=== PATIENT | female | born 1945 | race American Indian/Alaskan Native ===

== ENCOUNTER 2021-11-28 02:39 | Emergency (ER) | payer MEDICARE ==
[2021-11-28 05:25] LABS: Basophils % (Auto) 0.3 % (0.0-1.8); Eosinophils # (Auto) 0.3 K/mm3 (0.0-0.4); Eosinophils % (Auto) 1.9 % (0.0-4.3); Hematocrit 37.1 % (30.3-42.9); Hemoglobin 11.7 gm/dl (10.1-14.3); Lymphocytes # (Auto) 3.8 K/mm3 (1.2-5.4); Lymphocytes % (Auto) 24.8 % (13.4-35.0); Mean Corpuscular HGB Conc 32 % (30-34); Mean Corpuscular Volume 99 fl (79-97); Monocytes # (Auto) 0.7 K/mm3 (0.0-0.8); Monocytes % (Auto) 4.7 % (0.0-7.3); Platelet Count 265 K/mm3 (140-440); Red Blood Count 3.76 M/mm3 (3.65-5.03); Red Cell Distribution Width 15.5 % (13.2-15.2)
[2021-11-28 05:44] LABS: Albumin 3.6 g/dL (3.9-5); Calcium 9.3 mg/dL (8.4-10.2)
[2021-11-28] MEDS ORDERED: FAMOTIDINE 20 MG/2 ML INJ IV ONE (06:34)
[2021-11-28] MEDS ORDERED: SODIUM CHLORIDE 0.9% 1000 ML 1,000 ML IV ONE ×3 (06:34→07:47)
[2021-11-28] MEDS ORDERED: ONDANSETRON 4 MG/2 ML INJ IV ONE (06:34)
--- NOTE | 2021-11-28 06:48 | Emergency Department Report ---
ED General Adult HPI - General Chief complaint: Pain General Stated complaint: GENERAL ILLNESS Time Seen by Provider: 11/28/21 06:33 Source: patient Mode of arrival: Stretcher Limitations: No Limitations - History of Present Illness Initial comments: 76-year-old female with history of diabetes hypertension hyperlipidemia brought in by EMS for complaints of weakness and diarrhea. Patient reports she saw her primary care doctor after yesterday and went to receive a prescription for her cholesterol medication. She states she was feeling fine. She states however last night she began feeling unwell and then this morning at 12 AM she awoke with body aches chills and had to have multiple watery nonbloody stools. She denies any abdominal pain. No chest pain or shortness of breath no difficulty breathing or palpitations. She reports having chronic mid back pain "for years" but states it has not worsened and it is not changed in quality or nature. No cough or URI symptoms. She is not on antibiotics. She denies any recent antibiotic usage. Pain currently 3 out of 10. -: Sudden Time: 12:00 Location: abdomen Radiation: non-radiation Severity scale (0 -10): 3 Quality: dull, constant Consistency: constant Improves with: none Worsens with: none Associated Symptoms: diaphoresis, fever/chills, nausea/vomiting Treatments Prior to Arrival: none - Related Data Allergies Allergy/AdvReac Type Severity Reaction Status Date / Time No Known Allergies Allergy Unverified 11/28/21 04:12 ED Review of Systems ROS: Stated complaint: GENERAL ILLNESS Other details as noted in HPI Constitutional: no symptoms reported, chills, diaphoresis, fever, malaise, weakness Eyes: denies: eye pain, eye discharge, vision change ENT: denies: as per HPI, ear pain, throat pain, dental pain, hearing loss Respiratory: no symptoms reported, cough Cardiovascular: denies: chest pain, palpitations, dyspnea on exertion, edema, syncope, paroxysmal nocturnal dyspnea Endocrine: denies: see HPI, excessive sweating, flushing, intolerance to cold, intolerance to heat, increased hunger, increased thirst, increased urine, unexplained weight gain, unexplained weight loss Gastrointestinal: abdominal pain, nausea, diarrhea, constipation. denies: vomiting, hematemesis, melena, hematochezia Genitourinary: denies: urgency, dysuria, frequency, hematuria, discharge, abnormal menses, dyspareunia, other Musculoskeletal: denies: back pain, joint swelling, arthralgia Skin: denies: rash, lesions, change in color, change in hair/nails, pruritus Neurological: denies: headache, weakness, numbness, paresthesias, confusion, abnormal gait, vertigo, other Psychiatric: denies: anxiety, depression, auditory hallucinations, visual hallucinations, homicidal thoughts, suicidal thoughts Hematological/Lymphatic: denies: easy bleeding, easy bruising, swollen glands ED Past Medical Hx - Past Medical History Previous Medical History?: Yes Hx Diabetes: Yes Hx Arthritis: Yes Additional medical history: Neuropathy. SVT - Surgical History Past Surgical History?: Yes Additional Surgical History: Bilateral Cataract - Social History Smoking Status: Current Every Day Smoker Substance Use Type: None ED Physical Exam - General Limitations: No Limitations General appearance: alert, in no apparent distress - Head Head exam: Present: atraumatic, normocephalic, normal inspection - Eye Eye exam: Present: normal appearance, PERRL, EOMI Pupils: Present: normal accommodation - ENT ENT exam: Present: normal exam, mucous membranes moist, normal external ear exam - Neck Neck exam: Present: normal inspection, full ROM. Absent: tenderness, meningismus, lymphadenopathy, thyromegaly - Respiratory Respiratory exam: Present: normal lung sounds bilaterally. Absent: respiratory distress, wheezes, rales, rhonchi, stridor, chest wall tenderness, accessory muscle use, decreased breath sounds, prolonged expiratory, other - Cardiovascular Cardiovascular Exam: Present: regular rate, normal rhythm, normal heart sounds. Absent: bradycardia, tachycardia, irregular rhythm, systolic murmur, diastolic murmur, rubs, gallop, clicks, JVD, S3, S4, other - GI/Abdominal GI/Abdominal exam: Present: soft, normal bowel sounds, diminished bowel sounds. Absent: distended, tenderness, guarding, rebound, rigid, hyperactive bowel sounds, hypoactive bowel sounds, organomegaly, mass, bruit, pulsatile mass, hernia - Extremities Exam Extremities exam: Present: normal inspection, full ROM, normal capillary refill. Absent: tenderness, pedal edema, calf tenderness - Back Exam Back exam: Present: normal inspection, full ROM. Absent: tenderness, CVA tenderness (R), CVA tenderness (L), muscle spasm, paraspinal tenderness, vertebral tenderness - Neurological Exam Neurological exam: Present: alert, oriented X3, CN II-XII intact, other (Unable to test gait secondary to patient's current clinical condition) - Psychiatric Psychiatric exam: Present: normal affect, normal mood. Absent: depressed, agitated, anxious, flat affect, manic, homicidal ideation, suicidal ideation - Skin Skin exam: Present: warm, dry, intact, normal color ED Course Vital Signs 11/28/21 11/28/21 11/28/21 02:39 06:36 06:45 Temperature 98 F Pulse Rate 55 L 52 L 55 L Respiratory 18 16 11 L Rate Blood Pressure 150/90 73/41 Blood Pressure [Left] O2 Sat by Pulse 98 100 100 Oximetry 11/28/21 11/28/21 11/28/21 07:01 07:15 07:31 Temperature Pulse Rate 63 64 58 L Respiratory 25 H 18 22 Rate Blood Pressure 73/41 73/41 96/50 Blood Pressure [Left] O2 Sat by Pulse 100 100 Oximetry 11/28/21 11/28/21 11/28/21 08:31 08:45 09:02 Temperature Pulse Rate 65 65 65 Respiratory 21 11 L Rate Blood Pressure 73/41 85/48 Blood Pressure 105/77 [Left] O2 Sat by Pulse Oximetry 11/28/21 09:04 Temperature Pulse Rate Respiratory Rate Blood Pressure Blood Pressure [Left] O2 Sat by Pulse 96 Oximetry - Reevaluation(s) Reevaluation #1: 11/28/21 06:49 pt is comfortable appearing; informed that labs, cxr, and ct scan have been ordered. Pt also ordered for NS, zofran, and famotidine. Reevaluation #2: 11/28/21 09:26 pt appears well; is requesting food; vitals have improved; she reports she has "cramps' in her abdomen, denies active diarrhea; Reevaluation #3: 11/28/21 09:19 Case reviewed via telephone with on-call home restoration service supervisor, Dr. Das. She advises that the patient be started on a Protonix drip, and during her admission have viral hepatitis panel added. She is also requesting that the patient have acetaminophen level and INR added as well. She states that the patient will be evaluated by GI during the patient's inpatient hospitalization ED Medical Decision Making - Lab Data Result diagrams: 11/28/21 04:28 11/28/21 04:28 - EKG Data -: EKG Interpreted by Me EKG shows normal: sinus rhythm Rate: normal - EKG Data When compared to previous EKG there are: no significant change - Radiology Data Radiology results: report reviewed - Medical Decision Making 76-year-old female with multiple medical comorbidities presents for evaluation and is found today to have hypotension, elevated anion gap metabolic acidosis, hyperglycemia, transaminitis, and leukocytosis. Patient given famotidine, Protonix, and multiple liters of normal saline here with good effect. CT scan findings reviewed and discussed with consult below Case reviewed with on-call home restoration service supervisor,, Dr. Das. Finally Case reviewed with admitting hospitalist, @ 09:27am. Patient has been accepted for admission to the hospital service for further management. Critical Care Time: Yes (30) Critical care attestation.: If time is entered above; I have spent that time in minutes in the direct care of this critically ill patient, excluding procedure time. ED Disposition Clinical Impression: Hypotension, Diarrhea, High anion gap metabolic acidosis, Transaminitis Disposition: ADMITTED INPATIENT Is pt being admited?: Yes Does the pt Need Aspirin: No Condition: Stable
--- NOTE | 2021-11-28 07:00 | XRay Report ---
CHEST 1 VIEW 11/28/2021 5:54 AM INDICATION / CLINICAL INFORMATION: weakness, hypotension. COMPARISON: None available. FINDINGS: SUPPORT DEVICES: None. HEART / MEDIASTINUM: No significant abnormality. LUNGS / PLEURA: No significant pulmonary or pleural abnormality. No pneumothorax. ADDITIONAL FINDINGS: No significant additional findings. IMPRESSION: No acute abnormality. Signer Name: Lucien Jones MD Signed: 11/28/2021 6:55 AM Workstation Name: [id number]
[2021-11-28] MEDS ORDERED: INSULIN REGULAR, HUMAN 100 UNITS/1 ML IV ONE (07:30)
--- NOTE | 2021-11-28 08:27 | Cat Scan Report ---
CT ABDOMEN AND PELVIS WITH CONTRAST INDICATION / CLINICAL INFORMATION: abdominal pain, hypotension, frequent bowel movements. TECHNIQUE: Axial CT images were obtained through the abdomen and pelvis after 75 cc Omnipaque [address] scans at this location are performed using CT dose reduction for ALARA by means of automated e xposure control. COMPARISON: None available. FINDINGS: LOWER CHEST: No significant abnormality. LIVER: There is generalized steatosis. No other significant abnormality. GALLBLADDER: Marked gallbladder wall thickening is noted without clear visualization of calcified sto raheel. BILE DUCTS: No significant abnormality. PANCREAS: No significant abnormality. SPLEEN: No significant abnormality. ADRENALS: No significant abnormality. RIGHT KIDNEY/URETER: No significant abnormality. LEFT KIDNEY/URETER: A simple subcentimeter cyst is seen posteriorly along the upper pole. No other si gnificant abnormality. STOMACH/SMALL BOWEL: A nonspecific ovoid hyperdensity is seen posteriorly/superiorly along the gastri c fundus on image 28 of series 2 measuring up to 9 mm. There is generalized mild thickening of the st omach without other significant gastric or small bowel abnormalities. COLON: No significant abnormality. APPENDIX: No significant abnormality. PERITONEUM: Trace free fluid is seen along the pelvis. No free air. No fluid collection. LYMPH NODES: No significant adenopathy. VASCULATURE: No acute findings. There is mild generalized atherosclerosis. URINARY BLADDER: No significant abnormality. REPRODUCTIVE ORGANS: No significant abnormality. ADDITIONAL FINDINGS: None. BONES: No acute findings. There is mild spondylosis with demineralization of the bones, especially no table along the sacrum and posterior wings of the iliac bones. A nonspecific sclerotic lesion is seen to the right of midline along the mid sacrum abutting the sacroiliac joint on image 133 of series 2 and measuring 1.2 cm. IMPRESSION: 1. Possible gastritis with an indeterminate subcentimeter hyperdensity along the gastric fundus as ab ove that could represent an ulceration or small area of bleeding. Please correlate with the clinical findings. 2. No other acute findings to explain the patient's complaints. 3. Additional findings as above. Signer Name: Sreekanth Velazco MD Signed: 11/28/2021 8:23 AM Workstation Name: [id number]
[2021-11-28] MEDS ORDERED: PANTOPRAZOLE 40 MG INJ IV ONE (09:03)
[2021-11-28] MEDS ORDERED: PANTOPRAZOLE 80 MG in SODIUM CHLORIDE 0.9% 100 ML IV SCH (10:00)
--- NOTE | 2021-11-28 11:20 | History and Physical Report ---
History of Present Illness Date of examination: 11/28/21 Date of admission: 11/28/2021 Chief complaint: Abdominal pain, hypotension History of present illness: 76-year-old female with history of diabetes hypertension hyperlipidemia brought in by EMS for complaints of weakness and diarrhea. Patient reports she saw her primary care doctor after yesterday and went to receive a prescription for her cholesterol medication. She states she was feeling fine. She states however last night she began feeling unwell and then this morning at 12 AM she awoke with body aches chills and had to have multiple watery nonbloody stools. She denies any abdominal pain. No chest pain or shortness of breath no difficulty breathing or palpitations. She reports having chronic mid back pain "for years" but states it has not worsened and it is not changed in quality or nature. No cough or URI symptoms. She is not on antibiotics. She denies any recent antibiotic usage. The patient reported that she did have approximately 1 week long bout of constipation that resolved with that recent diarrhea. Past History Past Medical History: diabetes, hypertension, hyperlipidemia Past Surgical History: No surgical history Social history: no significant social history Family history: no significant family history Medications and Allergies Allergies Allergy/AdvReac Type Severity Reaction Status Date / Time No Known Allergies Allergy Unverified 11/28/21 04:12 Active Meds: Active Medications Pantoprazole Sodium 80 mg/ (Sodium Chloride) 100 mls @ 10 mls/hr IV DIRECT PHILIP Last Admin: 11/28/21 11:00 Dose: 8 mg/hr, 10 mls/hr Review of Systems All systems: negative Exam - Constitutional Vitals: Temp Pulse Resp BP Pulse Ox 98 F 62 17 77/47 83 L 11/28/21 02:39 11/28/21 11:01 11/28/21 11:01 11/28/21 11:01 11/28/21 11:01 General appearance: Present: no acute distress, well-nourished - EENT Eyes: Present: PERRL ENT: hearing intact, clear oral mucosa - Neck Neck: Present: supple, normal ROM - Respiratory Respiratory effort: normal Respiratory: bilateral: CTA - Cardiovascular Heart Sounds: Present: S1 & S2. Absent: rub, click - Extremities Extremities: pulses symmetrical, No edema Peripheral Pulses: within normal limits - Abdominal General gastrointestinal: Present: soft, non-tender, non-distended, normal bowel sounds Female genitourinary: Present: normal - Integumentary Integumentary: Present: clear, warm, dry - Musculoskeletal Musculoskeletal: gait normal, strength equal bilaterally - Psychiatric Psychiatric: appropriate mood/affect, intact judgment & insight - Neurologic Neurologic: CNII-XII intact, moves all extremities Results - Labs CBC & Chem 7: 11/28/21 04:28 11/28/21 04:28 Labs: Laboratory Last Values WBC 15.3 K/mm3 (4.5-11.0) H 11/28/21 04:28 RBC 3.76 M/mm3 (3.65-5.03) 11/28/21 04:28 Hgb 11.7 gm/dl (10.1-14.3) 11/28/21 04:28 Hct 37.1 % (30.3-42.9) 11/28/21 04:28 MCV 99 fl (79-97) H 11/28/21 04:28 MCH 31 pg (28-32) 11/28/21 04:28 MCHC 32 % (30-34) 11/28/21 04:28 RDW 15.5 % (13.2-15.2) H 11/28/21 04:28 Plt Count 265 K/mm3 (140-440) 11/28/21 04:28 Lymph % (Auto) 24.8 % (13.4-35.0) 11/28/21 04:28 [place] % (Auto) 4.7 % (0.0-7.3) 11/28/21 04:28 Eos % (Auto) 1.9 % (0.0-4.3) 11/28/21 04:28 Baso % (Auto) 0.3 % (0.0-1.8) 11/28/21 04:28 Lymph # (Auto) 3.8 K/mm3 (1.2-5.4) 11/28/21 04:28 [place] # (Auto) 0.7 K/mm3 (0.0-0.8) 11/28/21 04:28 Eos # (Auto) 0.3 K/mm3 (0.0-0.4) 11/28/21 04:28 Baso # (Auto) 0.0 K/mm3 (0.0-0.1) 11/28/21 04:28 Seg Neutrophils % 68.3 % (40.0-70.0) 11/28/21 04:28 Seg Neutrophils # 10.4 K/mm3 (1.8-7.7) H 11/28/21 04:28 Sodium 137 mmol/L (137-145) 11/28/21 04:28 Potassium 4.3 mmol/L (3.6-5.0) 11/28/21 04:28 Chloride 101.3 mmol/L (98-107) 11/28/21 04:28 Carbon Dioxide 12 mmol/L (22-30) L 11/28/21 04:28 Anion Gap 28 mmol/L 11/28/21 04:28 BUN 27 mg/dL (7-17) H 11/28/21 04:28 Creatinine 1.3 mg/dL (0.6-1.2) H 11/28/21 04:28 Estimated GFR 40 ml/min 11/28/21 04:28 BUN/Creatinine Ratio 21 % 11/28/21 04:28 Glucose 564 mg/dL (65-100) H* 11/28/21 04:28 Lactic Acid 13.20 mmol/L (0.7-2.0) H* 11/28/21 09:16 Calcium 9.3 mg/dL (8.4-10.2) 11/28/21 04:28 Total Bilirubin 0.70 mg/dL (0.1-1.2) 11/28/21 04:28 AST 399 units/L (5-40) H 11/28/21 04:28 ALT 200 units/L (7-56) H 11/28/21 04:28 Alkaline Phosphatase 198 units/L (35-129) H 11/28/21 04:28 Total Protein 6.9 g/dL (6.3-8.2) 11/28/21 04:28 Albumin 3.6 g/dL (3.9-5) L 11/28/21 04:28 Albumin/Globulin Ratio 1.1 % 11/28/21 04:28 Lipase 53 units/L (13-60) 11/28/21 08:00 Assessment and Plan Assessment and plan: 76-year-old female with history of diabetes hypertension hyperlipidemia brought in by EMS for complaints of weakness and diarrhea. Patient reports she saw her primary care doctor after yesterday and went to receive a prescription for her cholesterol medication. She states she was feeling fine. She states however last night she began feeling unwell and then this morning at 12 AM she awoke with body aches chills and had to have multiple watery nonbloody stools. She denies any abdominal pain. No chest pain or shortness of breath no difficulty breathing or palpitations. She reports having chronic mid back pain "for years" but states it has not worsened and it is not changed in quality or nature. No cough or URI symptoms. She is not on antibiotics. She denies any recent antibiotic usage. The patient reported that she did have approximately 1 week long bout of constipation that resolved with that recent diarrhea. The patient was admitted with diagnosis below. DKA/Diabetes mellitus type 2. Patient with significant hyperglycemia, anion gap. IV insulin drip, agressive IVF hydration Acute gastroenteritis/gastritis Severe sepsis/septic shock. Patient meets criteria given the leukocytosis, tachypnea and diagnosis of gastroenteritis along with lactic acidosis and hypotension. Acute kidney injury. Etiology secondary to vasomotor nephropathy severe lactic acidosis/metabolic acidosis. Hypertension Hyperlipidemia. 11/28/2021. CT scan reveals gastritis with an indeterminate subcentimeter hypodensity along the gastric fundus which could represent ulceration. Patient will be treated with antibiotics of Levaquin and Flagyl and consider GI consultation. Follow-up blood cultures and stool studies. Continue aggressive IV fluid hydration. Initiate insulin drip. Pt may need bicarbonate drip. We will hold BP medications for now given the hypotension. Monitor BP closely. If the patient's BP does not improve, we will initiate pressors
[2021-11-28] MEDS ORDERED: ONDANSETRON 4 MG/2 ML INJ IV PRN (11:24)
[2021-11-28] MEDS ORDERED: DEXTROSE 50% IN WATER (25GM) 50 ML SYRINGE IV PRN (11:24)
[2021-11-28] MEDS ORDERED: MORPHINE 4 MG/1 ML INJ IV PRN (11:24)
[2021-11-28] MEDS ORDERED: HYDROcodone/ACETAMINOPHEN 5-325 MG TAB PO PRN (11:24)
[2021-11-28] MEDS ORDERED: ACETAMINOPHEN 325 MG TAB PO PRN (11:24)
--- NOTE | 2021-11-28 11:25 | Gastroenterology Consultation ---
History of Present Illness - Reason for Consult Consult date: 11/28/21 elevated LFTs Requesting physician: RIVER GARCIAS - History of Present Illness This is a 76 yo female with pmh of DM, HTN, Hyperlipidemia brought into the ER for weakness, hypotension, abdominal pain. GI consulted for elevated liver enzymes. Patient is able to give limited history and presents with her son by bedside who gives history as well reports having on and off symptoms of what is described as abdominal gripe with excessive gas leading to nausea and vomiting for the past 1 year. She denies any abdominal pain. She has had a mix of diarrhea and constipation for the past week she has had constipation but for the past day or so she has had loose stools. Denies any blood in the stool or melena. Denies any vomiting blood. She was recently seen at [facility] ER on November 26 for tachycardia with SVT. She was given adenosine and Cardizem.. In the ED she was noted to be hypotensive with systolic in 60s. But responded to IV fluids. Patient noted to have elevated liver enzymes AST at 399 ALT 200 alk phos 198. Normal T bili. Normal lipase at 53. Noted to have leukocytosis with WBC of 15. She has had CT abdomen pelvis which showed nonspecific ovoid hyperdensity in the gastric fundus with generalized mild thickening of the stomach question of ulceration or small area of bleeding. Also noted to have marked gallbladder wall thickening without calcified stones. CT a/p showed STOMACH/SMALL BOWEL: A nonspecific ovoid hyperdensity is seen posteriorly/sup eriorly along the gastric fundus on image 28 of series 2 measuring up to 9 mm. There is generalized mild thickening of the stomach without other significant gastric or small bowel abnormalities. Thickened gallbladder wall. medication list reviewed. Past History Past Medical History: diabetes, hypertension, hyperlipidemia Past Surgical History: No surgical history Social history: no significant social history Family history: no significant family history Medications and Allergies Allergies Allergy/AdvReac Type Severity Reaction Status Date / Time No Known Allergies Allergy Unverified 11/28/21 04:12 Active Meds: Active Medications Pantoprazole Sodium 80 mg/ (Sodium Chloride) 100 mls @ 10 mls/hr IV DIRECT PHILIP Last Admin: 11/28/21 11:00 Dose: 8 mg/hr, 10 mls/hr Review of Systems - Review of Systems All systems: negative Constitutional: no weight loss, no weight gain, no fever, no chills Cardiovascular: no chest pain Gastrointestinal: nausea, vomiting, diarrhea, constipation, no abdominal pain, no melena, no hematochezia Neurological: weakness Psychiatric: no anxiety Endocrine: no cold intolerance Hematologic/Lymphatic: no easy bruising Allergic/Immunologic: no wheezing Exam - Constitutional Vital Signs: Temp Pulse Resp BP Pulse Ox 98 F 62 17 77/47 83 L 11/28/21 02:39 11/28/21 11:01 11/28/21 11:01 11/28/21 11:01 11/28/21 11:01 General appearance: no acute distress - EENT Eyes: EOM intact ENT: hearing intact - Neck Neck: supple - Respiratory Respiratory effort: normal - Cardiovascular Rhythm: regular Heart Sounds: Present: S1 & S2 - Gastrointestinal General gastrointestinal: Present: soft, non-tender, non-distended - Integumentary Integumentary: Present: clear - Neurologic Neurological: alert and oriented x3 - Psychiatric Psychiatric: appropriate mood/affect - Labs CBC & Chem 7: 11/28/21 04:28 11/28/21 04:28 Lab Results: Laboratory Results - last 24 hr 11/28/21 11/28/21 11/28/21 04:28 04:28 08:00 WBC 15.3 H RBC 3.76 Hgb 11.7 Hct 37.1 MCV 99 H MCH 31 MCHC 32 RDW 15.5 H Plt Count 265 Lymph % (Auto) 24.8 [place] % (Auto) 4.7 Eos % (Auto) 1.9 Baso % (Auto) 0.3 Lymph # (Auto) 3.8 [place] # (Auto) 0.7 Eos # (Auto) 0.3 Baso # (Auto) 0.0 Seg Neutrophils % 68.3 Seg Neutrophils # 10.4 H Sodium 137 Potassium 4.3 Chloride 101.3 Carbon Dioxide 12 L Anion Gap 28 BUN 27 H Creatinine 1.3 H Estimated GFR 40 BUN/Creatinine Ratio 21 Glucose 564 H* Lactic Acid Calcium 9.3 Total Bilirubin 0.70 AST 399 H ALT 200 H Alkaline Phosphatase 198 H Total Protein 6.9 Albumin 3.6 L Albumin/Globulin Ratio 1.1 Lipase 53 11/28/21 09:16 WBC RBC Hgb Hct MCV MCH MCHC RDW Plt Count Lymph % (Auto) [place] % (Auto) Eos % (Auto) Baso % (Auto) Lymph # (Auto) [place] # (Auto) Eos # (Auto) Baso # (Auto) Seg Neutrophils % Seg Neutrophils # Sodium Potassium Chloride Carbon Dioxide Anion Gap BUN Creatinine Estimated GFR BUN/Creatinine Ratio Glucose Lactic Acid 13.20 H* Calcium Total Bilirubin AST ALT Alkaline Phosphatase Total Protein Albumin Albumin/Globulin Ratio Lipase - Imaging CT Scan: report reviewed Assessment and Plan # Elevated LFTs - elevated liver enzymes AST at 399 ALT 200 alk phos 198. Normal T bili. Normal lipase at 53. Noted to have leukocytosis with WBC of 15. She has had CT abdomen pelvis which showed nonspecific ovoid hyperdensity in the gastric fundus with generalized mild thickening of the stomach question of ulceration or small area of bleeding. Also noted to have marked gallbladder wall thickening without calcified stones. - previously LFTs were normal. - CT showed liver steatosis. - ddx including ischemic injury given hypotension, vs infectious with viral illness, vs medication induced. Rec - monitor LFTs - check INR - check viral hepatitis panel - recommend RUQ US for evaluate for cholecystitis. # Abnormal CT - CT showing possible gastritis and ulcer. - no clinical signs/symptoms of GI bleeding. - Hgb at 11. Rec - recommend PPI IV. - no plans for endoscopy at this time given no signs of bleeding and hypotension with sepsis. - Patient Problems (1) Transaminitis Current Visit: Yes Status: Acute
[2021-11-28] MEDS ORDERED: INSULIN REGULAR, HUMAN 100 UNITS/1 ML SUB-Q SCH (11:30)
[2021-11-28] MEDS ORDERED: SODIUM CHLORIDE 0.9% 1000 ML 1,000 ML IV SCH (11:30)
--- NOTE | 2021-11-28 12:21 | XRay Report ---
CHEST 1 VIEW 11/28/2021 11:12 AM INDICATION / CLINICAL INFORMATION: ET PLACEMENT. COMPARISON: One view of the chest from earlier today. FINDINGS: SUPPORT DEVICES: An ET tube has been placed that terminates over the origin of the right main bronchu s. A right internal jugular CVL has been placed that terminates over the mid SVC. HEART / MEDIASTINUM: No significant abnormality. LUNGS / PLEURA: No significant pulmonary abnormality. No significant pleural effusion. No pneumothora x. ADDITIONAL FINDINGS: No significant additional findings. IMPRESSION: 1. Interval ET tube placement as above. Retraction of the tube by 4 cm is recommended. 2. Satisfactory positioning of a right internal jugular CVL. 3. No other acute findings. Signer Name: Sreekanth Velazco MD Signed: 11/28/2021 12:17 PM Workstation Name: [email or web address]
--- NOTE | 2021-11-28 12:22 | Procedure Note ---
Date of procedure: 11/28/21 Pre-op diagnosis: Sepsis, acute respiratory failure Post-op diagnosis: same Procedure: Endotracheal intubation Endotracheal intubation, glidescope Sedation: Ativan 2mg IV Size 7.5 cm ETT placed, 23cm at the lip Good color change, equal breath sounds bilaterally Anesthesia: Ativan 2mg IV Surgeon: Irwin Mcmillan Estimated blood loss: none Pathology: none Condition: critical Disposition: ICU Anesthesia: local Surgeon: IRWIN MCMILLAN Estimated blood loss: none Condition: critical Disposition: ICU
--- NOTE | 2021-11-28 12:22 | Procedure Note ---
Date of procedure: 11/28/21 Pre-op diagnosis: Sepsis, acute respiratory failure Post-op diagnosis: same Procedure: Right internal jugular vein central line catheter placement under ultrasound guidance The patient was prepped and draped in the usual sterile fashion. A timeout was taken with the patient's nurse at bedside to verify the correct patient, the correct procedure, and the correct operative site. Local anesthesia obtained with 1% lidocaine. The Seldinger technique was utilized under ultrasound guidance to insert a seeker needle into the right internal jugular vein without difficulty. A guidewire is advanced via the seeker needle into the right internal jugular vein and the seeker needle subsequently removed. A scalpel was used to incise the skin at the insertion site. A dilator was then passed over the guidewire into the right internal jugular vein and subsequently removed. A preflushed triple-lumen catheter was then advanced to the right internal jugular vein and the guidewire subsequently removed. All 3 ports flush and drawl with ease. 3-0 silk suture was utilized to secure the triple-lumen catheter in place. A Biopatch was placed at the insertion site. Postoperative chest x-ray revealed right internal jugular vein triple-lumen catheter in the expected position. Estimated blood loss minimal. Specimens none, complications none. Anesthesia: local Surgeon: RADHA MCMILLAN Estimated blood loss: minimal Pathology: none Condition: critical Disposition: ICU Anesthesia: local Surgeon: RADHA MCMILLAN Estimated blood loss: minimal Pathology: none Condition: critical Disposition: ICU
--- NOTE | 2021-11-28 12:24 | Event Note ---
Date: 11/28/21 11:48am: I was emergently called to the pt's room. Per staff, the pt was found to have agonal breathing, and to be unresponsive. Time of onset unknown. Upon my assessment the patient was cold clammy diaphoretic, her pupils were pinpoint, she had mild clear secretions emanating from her mouth, and she was found to have agonal respirations. acquisition specialist patient was found to have a heart rate of 38. She had no palpable pulse and there was no blood pressure manifested on the healthcare administrative assistant. ACLS protocol initiated by me as pt was found to be per my assessment, in PEA Arrest. Chest compressions initiated by administrative staff supervisor. Respiratory therapy called stat to the pt's room. Pt was given epinephrine 1mg IM.Pt subsequently had ROSC. Pt intubated and had central venous catheter placed by health club manager Dr Talley. See pt's EHR for his procedure note. Propofol drip to be started for sedation. Timing of EKG is 11:52 AM: Ventricular rate 91 bpm. Patient has no discernible P waves. She has an accelerated junctional rhythm with a ventricular rate of 91 bpm. She has [address] elevations in lead III but none are present in any contiguous leads.
--- NOTE | 2021-11-28 12:29 | Event Note ---
Date: 11/28/21 A code medic was called. I presented the patient bedside. The patient was found to be unresponsive and in acute respiratory distress with a pulse oximetry of 88%, using engine service repairer muscles to breathe. Patient deemed unable to protect her airway. The patient was emergently intubated and placed on ventilatory support. Patient admitted to ICU for acute hypoxic respiratory failure, sepsis. Critical care team notified. The high probability of a clinically significant, sudden or life threatening deterioration of the [cardiac, pulmonary, renal, neuro] system(s) required my full and direct attention, intervention and personal management. The aggregate critical care time was [95] minutes. This time is in addition to time spent performing reported procedures but includes the following: [x] Data Review and interpretation [x] Patient assessment and monitoring of vital signs [x] Documentation [x] Medication orders and management
[2021-11-28 12:58] LABS: INR 1.36 (0.87-1.13)
[2021-11-28 12:59] LABS: Partial Thromboplastin Time 26.9 Sec. (24.2-36.6)
--- NOTE | 2021-11-28 13:41 | Event Note ---
Date: 11/28/21 01:19pm: I was called to the patient's room. Per staff patient's heart rate was witnessed to drop from the 40s to the 30s to the 20s patient was found to be diaphoretic again. No palpable pulse felt by either myself or nursing staff. ACLS protocol initiated as patient was found to have no rhythm on electrocardiogram monitor and findings are consistent with PEA arrest. Patient given multiple rounds of epinephrine and bicarbonate. Calcium chloride was administered as well. Patient obtained ROSC. Repeat EKG obtained and interpreted by me. Pt would benefit from going to CT to r/o a pulmonary embolism. However, the pt is clinically very unstable and risks of leaving the department >>benefits. Hospitalist updated concerning my recommendation. EKG interpreted by me: Ventricular rate 106 bpm. Patient has no discernible P waves. Rhythm is irregular. She has approximate [address] elevation in lead III but not found any other contiguous leads. Patient also has diffuse ST depressions in her lateral leads. This likely may be due to reperfusion. 1:38pm: Given that the pt has undifferentiated cardiac arrest for which she has expe rienced 2 cardiac arrests in the ER, I telephoned cardiology. I telephoned Dr. Villegas, the flocculator operator, concerning the patient, to ascertain if the pt is a candidate for the laundry laborer. I informed him of the pt's ?ST elevation in lead III on both ekgs, but no other findings on contiguous leads concerning for acute myocardial ischemia or infarction. Per his verbal report, patient is likely having symptoms secondary to metabolic dysfunction and this is not primarily a cardiac pathology that is causing her witnessed cardiac arrests in the ER. He advises that the pt continue to undergo metabolic management of her symptoms. I updated the pt's son, who was at her bedside, concerning this. At this time patient was reassessed. She continues to be intubated. Blood pressure and r espiratory rate remained grossly unremarkable. Patient's condition continues to remain critical and guarded. 1:47pm: Dr. Valdovinos has arrived to evaluate the patient independently. I informed him of the pt's recent witnessed asystole arrest and ROSC. I also informed him of my discussion with , the flocculator operator. Per my discussion with him, he will order the patient for bicarbonate drip, will go to reassess her again independently, and will also speak to the patient's son directly at the patient's bedside.
[2021-11-28] MEDS ORDERED: NORepinephrine/NS 8 MG-250 ML 8 MG/250 ML INFUS..BTL IV SCH (14:00)
[2021-11-28] MEDS ORDERED: SODIUM BICARBONATE 100 MEQ in DEXTROSE 5% IN WATER 1,000 ML IV SCH (14:00)
--- NOTE | 2021-11-28 14:09 | Event Note ---
Date: 11/28/21 Patient with a second cardiac arrest which is most likely secondary to metabolic dysfunction/metabolic acidosis/lactic acidosis. We will start a bicarbonate drip (1/4 NS with 2 amps bicarb) and Levophed. Pt may have a component of cardiogenic shock for the severe acidpsis. Patient continues to be hypotensive with systolic blood pressure in the 70s. Insulin drip.
[2021-11-28] MEDS ORDERED: INSULIN REGULAR, HUMAN 100 UNITS in SODIUM CHLORIDE 0.9% 99 ML IV SCH (15:00)
[2021-11-28] MEDS ORDERED: metroNIDAZOLE/NS 500 MG/100 ML 500 MG/100 ML BAG IV SCH (15:00)
[2021-11-28] MEDS ORDERED: SODIUM CHLORIDE 0.45% IV SCH (15:00)
[2021-11-28] MEDS ORDERED: SODIUM BICARBONATE IV SCH (15:00)
[2021-11-28] MEDS ORDERED: ATROPINE 0.1% (1 MG/10 ML) CARDIAC SYRINGE ONE ×2 (15:02→20:20)
[2021-11-28 15:14] VITALS: BP 86/39
--- NOTE | 2021-11-28 15:34 | Event Note ---
Date: 11/28/21 Patient has had 4 subsequent CODE BLUE events with ACLS protocol followed and ROSC. I have informed the patient's son of the poor prognosis and that the ROSC is essentially a result of chemical/medication response from epinephrine/atropine. Patient is currently on insulin drip, bicarb drip, IV antibiotics and aggressive IV fluid hydration. I discussed the case with critical care/pulmonary. Cardiology also informed of abnormal EKG morphology suggestive of inferior SC. However, cardiology reports no plans for intervention. Prognosis remains extremely guarded/poor. The high probability of a clinically significant, sudden or life threatening deterioration of the [cardiac, pulmonary, endocrine] system(s) required my full and direct attention, intervention and personal management. The aggregate critical care time was [90] minutes. This time is in addition to time spent performing reported procedures but includes the following: [x] Data Review and interpretation [x] Patient assessment and monitoring of vital signs [x] Documentation [x] Medication orders and management
--- NOTE | 2021-11-28 15:59 | Consultation ---
History of Present Illness Consult date: 11/28/21 Requesting physician: NOEL BHAT Reason for consult: other (Acute hypoxemic resp failure; Cardiopulmonary arrest; Severe lactic acidosis: Septic shock) History of present illness: 76-year-old female with history of diabetes hypertension hyperlipidemia brought in by EMS for complaints of weakness and diarrhea. Patient reports she saw her primary care doctor after yesterday and went to receive a prescription for her cholesterol medication. She states she was feeling fine. She states however last night she began feeling unwell and then this morning at 12 AM she awoke with body aches chills and had to have multiple watery nonbloody stools. She denies any abdominal pain. No chest pain or shortness of breath no difficulty breathing or palpitations. She reports having chronic mid back pain "for years" but states it has not worsened and it is not changed in quality or nature. No cough or URI symptoms. She is not on antibiotics. She denies any recent antibiotic usage. While in the ED she had a PEA arrest x3 with ROSC. See code documentation for details. Currently orally intubated- on Propofol, Norepnephrine at 8, with SBP in the 70s Admitting attending at the bedside. Reviewed EKGs and shared images with Cardiology- no intervention planned at this time Past History Past Medical History: diabetes, hypertension, hyperlipidemia Past Surgical History: No surgical history Social history: no significant social history Family history: no significant family history Medications and Allergies Allergies Allergy/AdvReac Type Severity Reaction Status Date / Time No Known Allergies Allergy Unverified 11/28/21 04:12 Active Meds: Active Medications Acetaminophen (Acetaminophen 325 Mg Tab) 650 mg PO Q4H PRN PRN Reason: Pain MILD(1-3)/Fever >100.5/SEXTON Hydrocodone Bitart/Acetaminophen (Hydrocodone/Acetaminophen 5-325 Mg Tab) 2 each PO Q6H PRN PRN Reason: Pain, Moderate (4-6) Dextrose (Dextrose 50% In Water (25gm) 50 Ml Syringe) 50 ml IV Q30MIN PRN; Protocol PRN Reason: Hypoglycemia Heparin Sodium (Porcine) (Heparin 5,000 Unit/1 Ml Vial) 5,000 unit SUB-Q Q12HR PHILIP Pantoprazole Sodium 80 mg/ (Sodium Chloride) 100 mls @ 10 mls/hr IV DIRECT PHILIP Last Admin: 11/28/21 11:00 Dose: 8 mg/hr, 10 mls/hr Sodium Chloride (Nacl 0.9% 1000 Ml) 1,000 mls @ 150 mls/hr IV DIRECT PHILIP NORepinephrine/NS 8 MG-250 ML (Norepinephrine/Ns 8 Mg-250 Ml (Double Conc)) 8 mg in 250 mls @ 3.75 mls/hr IV TITRATE PHILIP; Protocol Last Admin: 11/28/21 15:11 Dose: 20 mcg/min, 37.5 mls/hr Insulin Human Regular 100 (units/ Sodium Chloride) 100 mls @ 1 mls/hr IV TITR PHILIP; Protocol Last Admin: 11/28/21 14:42 Dose: 8 units/hr, 8 mls/hr Levofloxacin/Dextrose (Levaquin 750mg/150ml) 750 mg in 150 mls @ 100 mls/hr IV Q24H PHILIP; Protocol Metronidazole (Flagyl 500 Mg/100 Ml) 500 mg in 100 mls @ 100 mls/hr IV Q8H PHILIP; Protocol Sodium Bicarbonate 100 meq/ (Sodium Chloride) 1,100 mls @ 100 mls/hr IV DIR ECT PHILIP Vasopressin 20 unit/ Sodium (Chloride) 101 mls @ 9.09 mls/hr IV TITR PHILIP; Protocol Insulin Human Regular (Insulin Regular, Human 100 Units/1 Ml) 0 units SUB-Q ACHS PHILIP; Protocol Last Admin: 11/28/21 13:06 Dose: 8 units Morphine Sulfate (Morphine 4 Mg/1 Ml Inj) 1 mg IV Q4H PRN PRN Reason: Pain , Severe (7-10) Ondansetron HCl (Ondansetron 4 Mg/2 Ml Inj) 4 mg IV Q8H PRN PRN Reason: Nausea And Vomiting Sodium Chloride (Sodium Chloride 0.9% 10 Ml Flush Syringe) 10 ml IV BID PHILIP Sodium Chloride (Sodium Chloride 0.9% 10 Ml Flush Syringe) 10 ml IV PRN PRN PRN Reason: LINE FLUSH Review of Systems ROS unobtainable: due to endotracheal tube, due to mental status Physical Examination Vital signs: Vital Signs Temp Pulse Resp BP Pulse Ox 98 F 55 L 18 150/90 98 11/28/21 02:39 11/28/21 02:39 11/28/21 02:39 11/28/21 02:39 07/09/22 02:39 General appearance: other (unrsponsive, orally intuabated ETT at 23cm at the lip) Eyes: non-icteric ENT: oropharynx dry Neck: supple, no lymphadenopathy, other (RIJ CVL) Effort: mildly labored Ascultation: Bilateral: clear, diminished breath sounds Cardiovascular: other (tachycardia, S1,S2) Gastrointestinal: normoactive bowel sounds, soft, non-tender, non-distended, other (Carter catheter) Extremities: pulses normal, cool other (sedated on Propofol) Results - Laboratory Findings CBC and BMP: 11/28/21 04:28 11/28/21 04:28 PT/INR, D-dimer PT 18.4 Sec. (12.2-14.9) H 11/28/21 10:57 INR 1.36 (0.87-1.13) H 11/28/21 10:57 Abnormal lab findings: Abnormal Labs 11/28/21 11/28/21 11/28/21 04:28 04:28 09:16 WBC 15.3 H MCV 99 H RDW 15.5 H Seg Neutrophils # 10.4 H PT INR Carbon Dioxide 12 L BUN 27 H Creatinine 1.3 H Glucose 564 H* Lactic Acid 13.20 H* AST 399 H ALT 200 H Alkaline Phosphatase 198 H Albumin 3.6 L Acetaminophen 11/28/21 11/28/21 10:57 10:57 WBC MCV RDW Seg Neutrophils # PT 18.4 H INR 1.36 H Carbon Dioxide BUN Creatinine Glucose Lactic Acid AST ALT Alkaline Phosphatase Albumin Acetaminophen 5.0 L - Diagnostic Findings Chest x-ray: image reviewed (ETT and RIJ CVL. No acute pulmoanry disease) Additional studies: 11/28/2021. CT scan reveals gastritis with an indeterminate subcentimeter hypodensity along the gastric fundus which could represent ulceration. No other pathology to explain the patient's symptoms Assessment and Plan Cardiopulmonary arrest x4 with ROSC Septic cardiogenic shock Abnormal EKG -leukocytosis, tachypnea and diagnosis of gastroenteritis along with lactic acidosis and hypotension. DKA/Diabetes mellitus type 2. Patient with significant hyperglycemia, anion gap. Acute gastroenteritis/gastritis Acute kidney injury. Etiology secondary to vasomotor nephropathy Severe lactic acidosis/metabolic acidosis h/o Hypertension h/o Hyperlipidemia. -Adjust minute ventilation for better gas exchange -Lung protective strategies,ARDS net protocol -Monitoring airway pressures -CXR, ABG as clinically indicated. Get ABG now. -Daily assessment for readiness to wean. Daily SBT -Increase Norepinephrine, titrate to keep MAP>65 -Add Vasopressin to therapy -Volume resuscitate 30ml/kg per sepsis protocol -Stop Propofol, patient is unresponsive and hypotensive. -Fentanyl infusion, titrate to CPOT 0-3 -Order 2D echocardiogram to evaluate EF -Monitoring renal function, hemodynamics and electrolyte profile -Carter catheter in this critically ill patient requiring strict intake and output monitoring. Daily assessment for ongoing need for Carter catheter -Replete electrolytes as clinically indicated -Empiric antibiotics therapy for possible GI infection- she presented with history of diarrhea and abdominal pain -Accuchecks with glycemic control. target blood glucose 140-180 mg/dL. Avoid hypoglycemia Currently on insulin infusion for hyperglycemia -VTE prophylaxis- Heparin -Avoid nephrotoxins and renally dose all medications -Stress ulcer prophylaxis- therapeutic pantoprazole based on CT scan findings -Mobility, frequent turning, off loading per facility protocol to prevent pressure ulcers -Maintain sleep wake cycle, avoid benzodiazepines. -Limit delirium -Serial EKGs and troponins -Get lactic acid levels , CBC and BMP now CONDITION:CRITICAL PROGNOSIS: GUARDED CODE STATUS; FULL CODE The high probability of a clinically significant, sudden or life threatening deterioration of the respiratory, cardiovascular, GI, renal system required my full and direct attention, intervention and personal management. The aggregate critical care time was [75] minutes. This time is in addition to time spent performing reported procedures but includes the following: [x] Data Review and interpretation [x] Patient assessment and monitoring of vital signs [x] Documentation [x] Medication orders and management
[2021-11-28] MEDS ORDERED: VASOPRESSIN 20 UNIT in SODIUM CHLORIDE 0.9% 100 ML IV SCH (16:00)
[2021-11-28] MEDS ORDERED: LACTATED RINGERS 1000 ML IV SOLN IV ONE (16:11)
[2021-11-28] MEDS ORDERED: MINERAL OIL/PETROLATUM, WHITE OPHTH OINT 3.5 GM OU PRN (16:20)
[2021-11-28] MEDS ORDERED: LIP THERAPY VASELINE TP PRN (16:20)
[2021-11-28 16:41] LABS: Calcium 9.9 mg/dL (8.4-10.2)
[2021-11-28 16:54] LABS: Hepatitis B Surface Antigen Non-Reactive (Negative); Hepatitis C Virus Antibody Non-Reactive (NonReactive)
[2021-11-28 18:02] LABS: Chol/HDL Ratio 3.73 %
[2021-11-28] MEDS ORDERED: SUCCINYLCHOLINE CHLORIDE 200 MG/10 ML INJ MDV ONE (20:15)
[2021-11-28] MEDS ORDERED: ETOMIDATE 20 MG/10 ML INJ IV ONE (20:15)
[2021-11-28] MEDS ORDERED: SODIUM BICARB 8.4% 50 MEQ/50 ML SYRINGE IV ONE (20:20)
[2021-11-28] MEDS ORDERED: CALCIUM CHLORIDE 1,000 MG/10 ML SYRINGE IV ONE (20:20)
[2021-11-28] MEDS ORDERED: EPINEPHrine 1 MG/10 ML SYRINGE ONE ×2 (20:20→20:25)
[2021-11-28] MEDS ORDERED: HEPARIN 5,000 UNIT/1 ML VIAL SUB-Q SCH (22:00)
[2021-11-28] MEDS ORDERED: SENNOSIDES/DOCUSATE SODIUM 8.6/50 MG TAB FEEDTUBE SCH (22:00)
--- NOTE | 2021-11-29 19:46 | Electrocardiograph Report ---
[facility] Test Date: 2021-11-28 Test Time: 11:52:40 Pat Name: MISAEL ORO Department: Room: [place] [address] Gender: F Real Estate Loan Processor: DERECK : 1945 Requested By: NOEL BHAT Order Number: [id number] Reading MD: Arslan Tinajero Measurements Intervals [place] Rate: 91 P: [place]: QRS: 32 QRSD: 102 T: 36 QT: 375 QTc: 460 Interpretive Statements Accelerated junctional rhythm Low voltage, precordial leads Acute inferior ST elevation myocardial infarction Compared to ECG 11/28/2021 11:51:05 No significant change Electronically Signed On 11-29-2021 19:46:06 EDT by Arslan Tinajero
--- NOTE | 2021-11-29 19:46 | Electrocardiograph Report ---
[facility] Test Date: 2021-11-28 Test Time: 11:51:05 Pat Name: MISAEL ORO Department: Room: [place] [address] Gender: F Dispute Coordinator: DERECK : 1945 Requested By: RIVER GARCIAS Order Number: [id number] Reading MD: Arslan Tinajero Measurements Intervals [place] Rate: 96 P: -78 [place]: 159 QRS: 46 QRSD: 81 T: 62 QT: 363 QTc: 458 Interpretive Statements Accelerated junctional rhythm, with retrograde P waves Acute inferior ST elevation myocardial infarction Low voltage QRS No previous ECG available for comparison Electronically Signed On 11-29-2021 19:45:36 EDT by Arslan Tinajero
--- NOTE | 2021-11-29 19:47 | Electrocardiograph Report ---
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
--- NOTE | 2021-11-29 19:49 | Electrocardiograph Report ---
[facility] Test Date: 2021-11-28 Test Time: 14:20:12 Pat Name: MISAEL ORO Department: Room: Gender: F Weigher And Grader: DERECK : 1945 Requested By: RIVER GARCIAS Order Number: [id number] Reading MD: Arslan Tinajero Measurements Intervals [place] Rate: 128 P: [place]: QRS: 19 QRSD: 70 T: 117 QT: 270 QTc: 394 Interpretive Statements Rapid atrial fibrillation Low voltage QRS INFEROLATERAL INFARCT, POSSIBLY ACUTE Compared to ECG 11/28/2021 11:52:40 Acute anterolateral injury pattern is now evident Electronically Signed On 11-29-2021 19:49:12 EDT by Arslan Tinajero
--- NOTE | 2021-11-29 19:51 | Electrocardiograph Report ---
[facility] Test Date: 2021-11-28 Test Time: 14:22:57 Pat Name: MISAEL ORO Department: Room: Gender: F Behavioral Instructor: DERECK : 1945 Requested By: RIVER GARCIAS Order Number: [id number] Reading MD: Arslan Tinajero Measurements Intervals [place] Rate: 128 P: [place]: QRS: 25 QRSD: 71 T: 123 QT: 304 QTc: 444 Interpretive Statements Atrial fibrillation Low voltage, precordial leads Nonspecific repol abnormality, diffuse leads Acute inferior ST elevation myocardial infarction should be considered Compared to ECG 11/28/2021 11:52:40 It appears that the chest leads on the previous tracing are likely right-sided leads Electronically Signed On 11-29-2021 19:50:26 EDT by Arslan Tinajero
== END 2021-11-28 21:32 ==
LOC: ED 02:39 → 3A 11:25 → UNDOADMIN 11:25 → 3A 12:23 → CC1 12:27 → ED 21:32
DX: R19.7 Diarrhea, unspecified (principal); A41.9 Sepsis, unspecified organism; I95.9 Hypotension, unspecified; E87.2 Acidosis; R74.01 Elevation of levels of liver transaminase levels; F17.200 Nicotine dependence, unspecified, uncomplicated; E11.9 Type 2 diabetes mellitus without complications; R10.9 Unspecified abdominal pain
CPT/HCPCS: 31500; 36415; 36556; 71045; 74177; 80048; 80053; 80061; 80074; 82140; 83690; 83735; 84100; 84484; 85025; 85610; 85730; 92950; 93005; 94002; 96361; 96365; 96366; 96367; 96368; 96375; 96376; 99291; C9113; J0171; J0330; J0461; J2354; J2405; J2704; J3490; J7030; Q9967; 80320; G0480; J1815